=== PATIENT | female | born 1945 | race Native Hawaiian/Other Pacific Islander ===

== ENCOUNTER 2016-06-17 18:06 | Emergency (ER) | payer BC, OTHER ==
[~2016-06-17] VITALS: Ht 149.9 cm; Wt 70.8 kg
[~2016-06-17 18:06] MED LIST: NOR10 PO
[2016-06-17 18:18] VITALS: BP 90/67; PULSE 151; RESP 16; TEMP 97; O2SAT 95
--- NOTE | 2016-06-17 18:25 | NUR ---
Patient to ER bed 1 to gown for evaluation. Side rails up. Report given to CAROL MENEZES.
--- NOTE | 2016-06-17 18:25 | NUR ---
Placed in room 1 . Placed on video library assistant, blood pressure machine and pulse oximeter. To gown for exam. Side rails up. Report given to CAROL MENEZES.
--- NOTE | 2016-06-17 18:37 | NUR ---
Heraclio rush in ED - 06/17/16 at 1839 by HUMBERTO Placed in room 1 . Placed on hogshead hooper, blood pressure machine and pulse oximeter. To gown for exam. Side rails up. Report given to CAROL MENEZES.
--- NOTE | 2016-06-17 18:48 | NUR ---
Patient to ER C/O chest palpitations and feeling dizzy. Patient is mildly diaphoretic and tachycardic. AAOx4, unlabored breathing, no signs of acute distress. Will continue to monitor.
--- NOTE | 2016-06-17 18:50 | NUR ---
ER MD Rodriguez at bedside for evaluation
[2016-06-17 19:35] LABS: BASOPHILS % (AUTO) 0.4 % (0.0-2.0); EOSINOPHILS # (AUTO) 0.2 K/uL (0.0-0.4); HEMOGLOBIN 10.2 g/dL (12.0-16.0); MONOCYTES # (AUTO) 0.4 K/uL (0.0-1.0); NEUTROPHILS # (AUTO) 2.7 K/uL (1.8-7.7)
[2016-06-17 19:38] LABS: CALCIUM 9.1 mg/dL (8.4-11.0); CREATININE 0.83 mg/dL (0.55-1.30)
[2016-06-17 19:45] LABS: TOTAL BILIRUBIN 0.1 mg/dL (0.0-1.0)
[2016-06-17 19:46] LABS: ALBUMIN 3.1 g/dL (3.4-4.8); TOTAL PROTEIN, SERUM 7.3 g/dL (6.4-8.3)
[2016-06-17 19:48] LABS: EOSINOPHILS % (AUTO) 4.3 % (0.0-4.0); HEMATOCRIT 31.9 % (36-48); LYMPHOCYTES # (AUTO) 1.1 K/uL (1.0-5.5); LYMPHOCYTES % (AUTO) 23.8 % (20.5-51.5); MEAN CORPUSCULAR HEMOGLOBIN 26 pg (27-31); MEAN CORPUSCULAR HGB CONC 32 % (32-36); MEAN CORPUSCULAR VOLUME 80 fL (79.0-98.0); MONOCYTES % (AUTO) 8.1 % (1.7-9.3); NEUTROPHILS % (AUTO) 63.4 % (40.0-70.0); PLATELET COUNT (AUTO) 216 K/uL (130-430); RED CELL DISTRIBUTION WIDTH 18.9 % (9.0-15.0); WHITE BLOOD COUNT (AUTO) 4.4 K/uL (4.8-10.8)
--- NOTE | 2016-06-17 20:33 | NUR ---
Patient calm, resting, HR 80-90, no signs of distress.
[2016-06-17 21:14] VITALS: BP 117/74; PULSE 68; RESP 20; TEMP 97.9; O2SAT 96
--- NOTE | 2016-06-17 21:14 | NUR ---
Patient given written and verbal discharge instructions and verbalizes understanding. ER MD Eisenberg discussed with patient the results and treatment provided. Patient in stable condition. ID arm band removed. Patient educated on pain management and to follow up with PMD. Pain Scale 0/10. Opportunity for questions provided and answered.
== END 2016-06-17 21:14 | disposition home or self-care (01) ==
LOC: SED 18:06
DX: R00.2 Palpitations (principal); R53.1 Weakness
CPT/HCPCS: 36415; 71010; 80053; 83880; 84484; 85025; 93005; 99285

== ENCOUNTER 2016-06-19 08:07 | Emergency (ER) | payer BC ==
[~2016-06-19] VITALS: Ht 149.9 cm; Wt 70.3 kg
[2016-06-19 08:13] VITALS: BP 153/75; PULSE 82; RESP 16; TEMP 97.2; O2SAT 97
--- NOTE | 2016-06-19 08:20 | NUR ---
Patient to ER bed 8 to gown for evaluation. Side rails up. Report given to Juni MENEZES.
--- NOTE | 2016-06-19 08:21 | NUR ---
ER Dr. Ricketts at bedside examining patient.
--- NOTE | 2016-06-19 08:25 | NUR ---
Pt came in for call back d/t discrepancy on chest XRay on 06/17/16 to rule out hiatal hernia or aortic aneurysm. Pt denies abd pain, denies chest pain, denies n/v. VS WNL. No acute distress.
--- NOTE | 2016-06-19 08:30 | NUR ---
Phleb at bedside for blood draw using 2 pt identifiers
--- NOTE | 2016-06-19 08:32 | NUR ---
Consent for CT chest signed by pt, placed in chart
[2016-06-19] MEDS ORDERED: SIMV20TA2 PO (08:46)
[2016-06-19] MEDS ORDERED: ALLO100T PO (08:46)
[2016-06-19] MEDS ORDERED: HYDR12.55 PO (08:46)
[2016-06-19] MEDS ORDERED: TOPXL100 PO (08:46)
[2016-06-19] MEDS ORDERED: PLE5 PO (08:46)
[2016-06-19 08:47] LABS: BASOPHILS % (AUTO) 0.6 % (0.0-2.0); EOSINOPHILS # (AUTO) 0.2 K/uL (0.0-0.4); EOSINOPHILS % (AUTO) 4.9 % (0.0-4.0); HEMATOCRIT 33.4 % (36-48); HEMOGLOBIN 10.6 g/dL (12.0-16.0); LYMPHOCYTES % (AUTO) 26.4 % (20.5-51.5); MEAN CORPUSCULAR HEMOGLOBIN 25 pg (27-31); MEAN CORPUSCULAR HGB CONC 32 % (32-36); MEAN CORPUSCULAR VOLUME 80 fL (79.0-98.0); MONOCYTES # (AUTO) 0.3 K/uL (0.0-1.0); MONOCYTES % (AUTO) 7.2 % (1.7-9.3); NEUTROPHILS # (AUTO) 2.1 K/uL (1.8-7.7); NEUTROPHILS % (AUTO) 60.9 % (40.0-70.0); PLATELET COUNT (AUTO) 226 K/uL (130-430); RED BLOOD CELL COUNT(AUTO) 4.18 MIL/uL (4.2-6.2); RED CELL DISTRIBUTION WIDTH 19.4 % (9.0-15.0); WHITE BLOOD COUNT (AUTO) 3.6 K/uL (4.8-10.8)
[2016-06-19] MEDS ORDERED: IOHEXOL 100 ML IV ONE (08:48)
[2016-06-19 08:50] LABS: CALCIUM 8.9 mg/dL (8.4-11.0); CREATININE 0.71 mg/dL (0.55-1.30); POTASSIUM 3.7 mmol/L (3.5-5.1)
[2016-06-19 08:55] LABS: ALBUMIN 3.3 g/dL (3.4-4.8); TOTAL BILIRUBIN 0.2 mg/dL (0.0-1.0); TOTAL PROTEIN, SERUM 7.4 g/dL (6.4-8.3)
[2016-06-19] MEDS ORDERED: NS 500 ML IV ONE (10:00)
[2016-06-19 11:07] VITALS: BP 139/71; PULSE 67; RESP 15; TEMP 97.2; O2SAT 95
--- NOTE | 2016-06-19 11:07 | NUR ---
Patient given written and verbal discharge instructions and verbalizes understanding. ER MD discussed with patient the results and treatment provided. Given copies of tests performed in ER. Patient in stable condition. ID arm band removed. IV catheter removed intact and dressing applied, no active bleeding. No Rx given. Patient educated on pain management and to follow up with PMD. Pain Scale 0/10. Opportunity for questions provided and answered.
== END 2016-06-19 11:07 | disposition home or self-care (01) ==
LOC: SED 08:07
DX: Z00.01 Encounter for general adult medical examination with abnormal findings (principal); K44.9 Diaphragmatic hernia without obstruction or gangrene; I10 Essential (primary) hypertension
CPT/HCPCS: 36415; 71260; 80053; 85025; 99285; J7040; Q9967

== ENCOUNTER 2018-11-13 14:46 | Emergency (ER) | payer BC ==
[~2018-11-13] VITALS: Ht 149.9 cm; Wt 74.8 kg
[~2018-11-13 14:46] MED LIST changes: +ALLO100T PO; +HYDR12.55 PO; +PLE5 PO; +SIMV20TA2 PO; +TOPXL100 PO
[2018-11-13] MEDS ORDERED: NACL 0.9% 1,000 ML IV ONE (14:54)
--- NOTE | 2018-11-13 15:00 | NUR ---
Placed in room 08 . Placed on traffic monitor specialist, blood pressure machine and pulse oximeter. To gown for exam. Side rails up.
--- NOTE | 2018-11-13 15:10 | NUR ---
Dr Rosales at bedside examining patient
--- NOTE | 2018-11-13 15:12 | NUR ---
Pt brought by self,A&Ox4, pt presents to ER with palpitations and chest discomfort, HR 148 at this time, skin pink and warm, cap refill <3, VSS, respirations even and unlabored, pt follows commands, will cont to monitor.
[2018-11-13] MEDS ORDERED: DILTIAZEM HCL 25 MG/5 ML VIAL IVP ONE (15:15)
[2018-11-13 15:47] LABS: BASOPHILS % (AUTO) 0.5 % (0.0-2.0); EOSINOPHILS # (AUTO) 0.1 K/uL (0.0-0.4); HEMATOCRIT 37.3 % (36-48); LYMPHOCYTES # (AUTO) 0.7 K/uL (1.0-5.5); LYMPHOCYTES % (AUTO) 11.8 % (20.5-51.5); MEAN CORPUSCULAR HEMOGLOBIN 28 pg (27-31); MEAN CORPUSCULAR HGB CONC 32 % (32-36); MEAN CORPUSCULAR VOLUME 87 fL (79.0-98.0); MONOCYTES # (AUTO) 0.4 K/uL (0.0-1.0); MONOCYTES % (AUTO) 7.1 % (1.7-9.3); NEUTROPHILS # (AUTO) 4.6 K/uL (1.8-7.7); NEUTROPHILS % (AUTO) 78.6 % (40.0-70.0); PLATELET COUNT (AUTO) 209 K/uL (130-430); RED CELL DISTRIBUTION WIDTH 16.8 % (9.0-15.0); WHITE BLOOD COUNT (AUTO) 5.9 K/uL (4.8-10.8)
--- NOTE | 2018-11-13 16:06 | NUR ---
Pt A&Ox4, HR decreased after cardizem administration, pt respirations are even and unlabored, family at bedside.
[2018-11-13 16:09] LABS: ANION GAP 8 (5-15); CALCIUM 9.1 mg/dL (8.4-11.0); CHLORIDE 104 mmol/L (98-107); CREATININE 0.75 mg/dL (0.55-1.30); GLUCOSE 150 mg/dL (70-99); POTASSIUM 3.6 mmol/L (3.5-5.1); SODIUM SERUM 137 mmol/L (136-145); UREA NITROGEN, BLOOD 17 mg/dL (8-21)
[2018-11-13 16:13] LABS: ALANINE AMINOTRANSFERASE 13 U/L (12-78); ALBUMIN 3.4 g/dL (3.4-4.8); AMYLASE 46 U/L (0-100); ASPARTATE AMINOTRANSFERASE 11 U/L (10-37); LIPASE 131 U/L (73-393); TOTAL BILIRUBIN 0.2 mg/dL (0.0-1.0)
[2018-11-13 16:23] LABS: BILIRUBIN,URINE NEGATIVE (NEGATIVE); BLOOD, URINE NEGATIVE (NEGATIVE); CLARITY/URINE CLEAR (CLEAR); COLOR,URINE YELLOW (YELLOW); GLUCOSE,URINE NEGATIVE (NEGATIVE); KETONES,URINE NEGATIVE (NEGATIVE); LEUKOCYTE ESTERASE ,URINE 1+ (NEGATIVE); NITRITE, URINE NEGATIVE (NEGATIVE); PROTEIN URINE NEGATIVE (NEGATIVE); UROBILINOGEN,URINE 0.2 (0.2-1.0)
[2018-11-13 16:41] LABS: INR 0.9 (0.8-1.2); PROTHROMBIN TIME 9.5 SECS (9.5-12.5)
[2018-11-13 16:50] VITALS: BP_SYST 121
--- NOTE | 2018-11-13 16:50 | NUR ---
Patient given written and verbal discharge instructions and verbalizes understanding. ER MD discussed with patient the results and treatment provided. Patient in stable condition. ID arm band removed. IV catheter removed intact and dressing applied, no active bleeding. NO Rx given. Patient educated on pain management and to follow up with PMD. Pain Scale 0. Opportunity for questions provided and answered. Medication side effect fact sheet provided.
[2018-11-13 16:59] LABS: BACTERIA,URINE FEW /HPF (None Seen); RBC,URINE 0-3 /HPF (0-3)
[2018-11-13 17:00] LABS: YEAST,URINE Few /HPF (None Seen)
[2018-11-13 17:01] LABS: FINE GRANULAR CASTS,URINE 0-10 /LPF (None Seen); MUCUS,URINE 1+ /LPF (None Seen)
== END 2018-11-13 16:50 | disposition home or self-care (01) ==
LOC: SED 14:46
DX: I47.1 Supraventricular tachycardia (principal); I10 Essential (primary) hypertension; Z79.899 Other long term (current) drug therapy
CPT/HCPCS: 36415; 71045; 80053; 81000; 82150; 82550; 83605; 83690; 84484; 85025; 85610; 85730; 87040; 87086; 96374; 99284; J3490; J7030

== ENCOUNTER 2019-11-03 01:43 | Emergency (ER) | payer BC ==
[~2019-11-03] VITALS: Ht 165.1 cm; Wt 72.6 kg
[2019-11-03 02:05] VITALS: BP_SYST 159
[2019-11-03] MEDS ORDERED: FAMOTIDINE 20 MG TABLET PO ONE (03:00)
[2019-11-03] MEDS ORDERED: ASPIRIN 81 MG TAB.CHEW PO ONE (03:00)
--- NOTE | 2019-11-03 03:10 | NUR ---
Per contract post office clerk, pt LWBS.
== END 2019-11-03 03:10 | disposition left against medical advice (07) ==
LOC: SED 01:43
DX: R07.89 Other chest pain (principal); Z53.21 Procedure and treatment not carried out due to patient leaving prior to being seen by health care provider

== ENCOUNTER 2022-12-22 21:26 | Emergency (ER) | payer BC ==
[~2022-12-22] VITALS: Ht 149.9 cm; Wt 63.0 kg
[~2022-12-22 21:26] MED LIST changes: +SIMV-343 PO; -SIMV20TA2 PO
[2022-12-22 21:30] VITALS: BP_SYST 145; PULSE 105; RESP 16; TEMP 97.9; O2SAT 97
[2022-12-22 22:23] LABS: BASOPHILS % (AUTO) 0.5 % (0.0-2.0); EOSINOPHILS # (AUTO) 0.2 K/uL (0.0-0.4); EOSINOPHILS % (AUTO) 3.9 % (0.0-4.0); HEMATOCRIT 41.1 % (36-48); HEMOGLOBIN 13.6 g/dL (12.0-16.0); LYMPHOCYTES # (AUTO) 1.1 K/uL (1.0-5.5); MEAN CORPUSCULAR HEMOGLOBIN 30 pg (27-31); MEAN CORPUSCULAR HGB CONC 33 % (32-36); MEAN CORPUSCULAR VOLUME 91 fL (79.0-98.0); MONOCYTES # (AUTO) 0.3 K/uL (0.0-1.0); MONOCYTES % (AUTO) 7.3 % (1.7-9.3); NEUTROPHILS # (AUTO) 3.1 K/uL (1.8-7.7); NEUTROPHILS % (AUTO) 65.3 % (40.0-70.0); PLATELET COUNT (AUTO) 152 K/uL (130-430); RED BLOOD CELL COUNT(AUTO) 4.54 MIL/uL (4.2-6.2); RED CELL DISTRIBUTION WIDTH 13.9 % (9.0-15.0); WHITE BLOOD COUNT (AUTO) 4.8 K/uL (4.8-10.8)
[2022-12-22 22:50] LABS: ANION GAP 7 (5-15); CALCIUM 9.3 mg/dL (8.4-11.0); CARBON DIOXIDE 29 mmol/L (23-29); CHLORIDE 104 mmol/L (98-107); CREATININE 0.74 mg/dL (0.55-1.30); GLUCOSE 198 mg/dL (74-106); POTASSIUM 4.3 mmol/L (3.5-5.1); SODIUM SERUM 140 mmol/L (136-145); UREA NITROGEN, BLOOD 17 mg/dL (8-21)
[2022-12-22 22:57] LABS: ALANINE AMINOTRANSFERASE 13 U/L (12-78); ALBUMIN 3.7 g/dL (3.4-4.8); ASPARTATE AMINOTRANSFERASE 13 U/L (10-37); TOTAL BILIRUBIN 0.3 mg/dL (0.0-1.0); TOTAL PROTEIN, SERUM 7.8 g/dL (6.4-8.3)
[2022-12-22 23:51] VITALS: BP_SYST 137; PULSE 74; RESP 18; TEMP 98.4; O2SAT 95
== END 2022-12-23 03:40 | disposition home or self-care (01) ==
LOC: SED 21:26
DX: R00.2 Palpitations (principal); I10 Essential (primary) hypertension; Z79.899 Other long term (current) drug therapy
CPT/HCPCS: 36415; 80053; 84484; 85025; 93005; 99284

== ENCOUNTER 2023-03-12 22:19 | Emergency (ER) | payer BC ==
[~2023-03-12] VITALS: Ht 149.9 cm; Wt 63.5 kg
[2023-03-12 22:30] VITALS: BP_SYST 157; BP_SYST 189; PULSE 76; RESP 20; TEMP 97.7; O2SAT 97
[2023-03-12] MEDS ORDERED: amLODIPine BESYLATE 10 MG TABLET PO ONE (23:15)
[2023-03-13 00:30] VITALS: BP_SYST 128; PULSE 65; RESP 18; TEMP 97.7; O2SAT 94
== END 2023-03-13 00:20 | disposition home or self-care (01) ==
LOC: SED 22:19
DX: I10 Essential (primary) hypertension (principal); Z79.899 Other long term (current) drug therapy
CPT/HCPCS: 99281